=== PATIENT | female | born 1995 | race African-American/Black ===

== ENCOUNTER 2020-08-28 01:42 | Emergency (ER) | payer OTHER ==
[2020-08-28 02:08] VITALS: BP 128/60; PULSE 77; TEMP 98.2; BMI 38.0
[2020-08-28 04:13] LABS: BASO % 0.7 % (0-2.0); HEMATOCRIT 33.7 % (32.4-45.2); HEMOGLOBIN 10.7 GM/dL (10.7-15.3); LYMPH % 17.5 % (8-40); MCH 23.4 pg (25.7-33.7); MCHC 31.8 g/dl (32.0-36.0); MEAN CELL VOLUME 73.8 fl (80-96); MEAN PLT VOLUME 9.3 fl (7.5-11.1); MONO % 4.5 % (3.8-10.2); NEUT % 74.3 % (42.8-82.8); PLATELET COUNT 285 K/MM3 (134-434); RBC 4.56 M/mm3 (3.60-5.2); RDW 17.4 % (11.6-15.6); WHITE BLOOD COUNT 9.7 K/mm3 (4.0-10.0)
[2020-08-28 04:34] LABS: CHLORIDE 106 mmol/L (98-107); POTASSIUM 4.2 mmol/L (3.5-5.1); SODIUM 140 mmol/L (136-145)
[2020-08-28 04:36] LABS: URINE APPEARANCE CLEAR; URINE BILIRUBIN NEGATIVE (NEGATIVE); URINE COLOR YELLOW; URINE GLUCOSE (UA) NEGATIVE (NEGATIVE); URINE KETONE TRACE (NEGATIVE); URINE LEUK ESTERASE NEGATIVE (NEGATIVE); URINE NITRITE NEGATIVE (NEGATIVE); URINE PROTEIN NEGATIVE (NEGATIVE); URINE UROBILINOGEN 0.2 mg/dL (0.2-1.0)
[2020-08-28 04:36] LABS: CALCIUM 9.2 mg/dL (8.5-10.1)
[2020-08-28 04:37] LABS: ANION GAP 8 MMOL/L (8-16); BLOOD UREA NITROGEN 8.3 mg/dL (7-18); CO2 26 mmol/L (21-32); GLUCOSE,RANDOM 92 mg/dL (74-106)
[2020-08-28 04:40] LABS: CREATININE 0.7 mg/dL (0.55-1.3); PHOSPHOROUS 3.8 mg/dL (2.5-4.9); SGOT/AST 10 U/L (15-37); SGPT/ALT 20 U/L (13-61)
[2020-08-28 04:41] LABS: BILIRUBIN,TOTAL 0.2 mg/dL (0.2-1)
[2020-08-28 04:42] LABS: TOT PROT 7.3 g/dl (6.4-8.2)
[2020-08-28 04:43] LABS: ALK PHOS 99 U/L (45-117)
== END 2020-08-28 05:23 | disposition home or self-care (01) ==
LOC: JER 01:42
DX: R55 Syncope and collapse (principal)
CPT/HCPCS: 36415; 80053; 81003; 82550; 83735; 84100; 84443; 84484; 85025; 85730; 87086; 93005; 93010; 99285-25